=== PATIENT | female | born 2005 ===

== ENCOUNTER 2025-01-07 10:00 | Observation (INO) ==
--- NOTE | 2025-01-07 10:48 | ED Physician Documentation ---
PD HPI MHE Stated complaint Stated Complaint: TREMORS Chief complaint Chief Complaint: General Meds/Allgy Home Medications Ambulatory Orders Medication Instructions Recorded Confirmed meloxicam 7.5 mg tablet 7.5 mg PO BID PRN pain #14 tabs 12/28/24 prednisone 20 mg tablet See Rx Instructions .Route 12/28/24 .COMPLEX #19 tabs Allergies Allergies Allergy/AdvReac Type Severity Reaction Status Date / Time testosterone Allergy Mild Unknown Verified 01/07/25 10:21 PFSH Active Problems All Active Problems (Updated 12/28/24 @ 11:13 by Lorenzo Saldivar MD) Chronic pain (Acute) Social History Social History Relationship: Do you feel safe in your home environment?: Yes Suffered physical, verbal, emotional, or financial abuse?: No POLST Patient has POLST: No Results Vitals Vitals: Vital Signs - 24 hr 01/07/25 10:18 Temperature 36.6 C Temperature Source Temporal Artery Scan Pulse Rate 88 Respiratory Rate 18 Blood Pressure 126/82 O2 Saturation 97 O2 Source Room air Pain Intensity 7 Oxygen O2 Source Room air Discharge Plan Discharge Prescriptions: No Action prednisone 20 mg tablet See Rx Instructions .ROUTE .COMPLEX Qty: 19 0RF Rx Instructions: 3 tabs po daily x 3 days, then 2 tabs po daily x 3 days then 1 tab po daily x 4 days meloxicam 7.5 mg tablet 7.5 mg PO BID PRN (Reason: pain ) Qty: 14 0RF Print Language: Syriac Stand Alone Forms: PCP List
--- NOTE | 2025-01-07 11:23 | ED Physician Documentation ---
History of Present Illness Stated complaint Stated Complaint: TREMORS Chief complaint Chief Complaint: General Additonal information Additional information: 19-year-old female identifies as male with type I bipolar disorder presents emergency department for tremors and was told by her psychiatrist that she had toxic levels of lithium. Patient says that she has been taking lithium for a few months now her last blood draw was 0.5 yesterday her blood draw was at 3.1 and her psychiatrist told her to present to the nearest emergency department for further evaluation due to toxic levels of lithium. Patient has tremors throughout entire body and she also has been endorsing and some hallucinations, patient states that he keeps thinking he is hearing different phone calls and having conversations with different people that he did not actually have. Last lithium dose was yesterday morning Meds/Allgy Home Medications Ambulatory Orders Medication Instructions Recorded Confirmed meloxicam 7.5 mg tablet 7.5 mg PO BID PRN pain #14 tabs 12/28/24 prednisone 20 mg tablet See Rx Instructions .Route 12/28/24 .COMPLEX #19 tabs Allergies Allergies Allergy/AdvReac Type Severity Reaction Status Date / Time testosterone Allergy Mild Unknown Verified 01/07/25 10:21 REPLACED BY [facility] Active Problems All Active Problems (Updated 01/07/25 @ 18:11 by Marcelo Arango MD) Bipolar disorder (Acute) [place] toxicity (Acute) Chronic pain (Acute) Social History Social History Smoking Status: Unknown if ever smoked Relationship: Do you feel safe in your home environment?: Yes Suffered physical, verbal, emotional, or financial abuse?: No POLST Patient has POLST: No Exam Constitutional abnormal general appearance (disheveled), no apparent distress, average body habitus, limitations noted (behavioral limitations) and level of alertness abnormal (lethargic) HENMT normocephalic and head/scalp atraumatic Eyes PERRL and EOMs intact bilaterally Neck/C-Spine visual inspection normal Chest inspection of chest normal Respiratory breath sounds equal bilaterally, normal respiratory effort and clear to auscultation bilaterally Cardiovascular normal heart rate noted and regular rhythm noted Gastrointestinal abdomen normal to inspection Genitourinary no CVA tenderness Extremities normal to inspection and normal to palpation Neurology gutter installer II-XII intact, movement abnormality noted (generalized body tremors), speech abnormality noted (slowed speech) and GCS 15 Psychiatry mental status abnormal (lethargic), oriented x3, thought process abnormality noted (hallucinations), cooperative, affect abnormality noted (flat), psychomotor abnormality noted (slow) and memory normal Skin skin color normal Results Vitals Vitals: Vital Signs - 24 hr 01/07/25 10:18 01/07/25 10:21 01/07/25 12:20 Temperature 36.6 C Temperature Source Temporal Artery Scan Pulse Rate 88 92 Respiratory Rate 18 16 Blood Pressure 126/82 117/82 O2 Saturation 97 100 O2 Source Room air Room air Pain Intensity 7 7 7 01/07/25 14:00 01/07/25 16:00 Temperature Temperature Source Pulse Rate 98 96 Respiratory Rate 18 16 Blood Pressure 115/66 145/90 H O2 Saturation 100 99 O2 Source Room air Room air Pain Intensity 5 7 Oxygen O2 Source Room air EKG (time done) 1153: EKG releavant findings:: EKG personally interpreted by author of this note. Relevant findings are: Rate: Rate (enter#) (88) Rhythm: NSR [place]: Normal Intervals: Normal [place] Ischemia: Other (Nonspecific T wave abnormalities in the anterior leads) Computer interpretation: Agree with computer Labs Labs: Laboratory Tests 01/07/25 01/07/25 01/07/25 11:20 11:27 15:38 WBC 13.8 H RBC 4.88 Hgb 14.7 Hct 45.4 MCV 93.0 MCH 30.1 MCHC 32.4 RDW 13.6 Plt Count 332 MPV 9.4 Neut # (Auto) 11.0 H Lymph # (Auto) 1.6 [place] # (Auto) 0.7 Eos # (Auto) 0.5 Baso # (Auto) 0.1 Absolute Nucleated RBC 0.00 Nucleated RBC % 0.0 Sodium 137 Potassium 4.8 H Chloride 111 Carbon Dioxide 22 Anion Gap 4.0 L BUN 14 Creatinine 1.1 Estimated GFR (MDRD) 63 L Glucose 88 Calcium 10.3 Total Bilirubin 0.4 AST 23 ALT 40 Alkaline Phosphatase 73 Total Protein 6.8 Albumin 4.6 Globulin 2.2 Albumin/Globulin Ratio 2.1 Last Dose Date UNKNOWN UNKNOWN Last Dose Time UNKNOWN UNKNOWN Urine Opiates Screen NEGATIVE Ur Buprenorphine Scrn NEGATIVE Ur Oxycodone Screen NEGATIVE Urine Methadone Screen NEGATIVE Ur Barbiturates Screen NEGATIVE Ur Tricyclics Screen NEGATIVE Ur Phencyclidine Scrn NEGATIVE Ur Amphetamine Screen POSITIVE H U Methamphetamines Scrn NEGATIVE U Benzodiazepines Scrn NEGATIVE [place] 2.76 H* 2.24 H* Urine Cocaine Screen NEGATIVE U Cannabinoids Screen NEGATIVE Ur Drug Screen Comment CUTOFF CONC BELOW: PD Medical Decision Making ED course ED course: 19-year-old female with history of type I bipolar disorder takes lithium daily presents to emergency department for concerns of lithium toxicity. Patient said that her psychiatrist checked her level last night and it was 3.1 she has not taken any additional doses since finding out that her lithium level was elevated. She comes in quite tremulous she is able to describe the situation and is overall good historian of how much medication she takes but she does report that she is feeling confused with hallucinations. Labs are complete for further evaluation and she has got mild leukocytosis, 13.8 potassium slightly elevated at 4.8 and kidney function appears to be within normal limits. Urine drug screen is positive for amphetamines initial lithium level came back at 2.76 I spoke with [facility] poison control who recommended repeating a level 4 hours from initial draw it is trending down so it does appear to have peaked last night it is now 2.24. Given that patient still quite symptomatic [facility] poison control is recommending to continue to trend lithium levels every 6 hours until they are within therapeutic range which is 1.5 and below. She received 2 L of IV fluids here in the emergency department she is not going to require dialysis she is also received 2 mg p.o. Ativan to help with her tremors and anxiety that she is experiencing with this. I spoke with hospitalist who has graciously agreed to admit the patient for continued trending of lithium levels as well as ongoing IV fluid. Patient is agreeable to stay at this point in time. Discharge Plan Discharge Patient Disposition: 66 [facility] DC/Xfer Condition: Good Clinical Impression: [place] toxicity
[2025-01-07 11:39] LABS: BASOPHILS # (AUTO) 0.1 10^3/uL (0.0-0.1); BASOPHILS % (AUTO) 0.4 %; EOSINOPHILS # (AUTO) 0.5 10^3/uL (0.0-0.7); EOSINOPHILS % (AUTO) 3.4 %; HCT - HEMATOCRIT 45.4 % (37.0-47.0); HGB - HEMOGLOBIN 14.7 g/dL (12.0-16.0); LYMPHOCYTES # (AUTO) 1.6 10^3/uL (1.5-3.5); LYMPHOCYTES % (AUTO) 11.4 %; MEAN CORPUSCULAR HEMOGLOBIN 30.1 pg (27.0-31.0); MEAN CORPUSCULAR HGB CONC 32.4 g/dL (32.0-36.0); MEAN PLATELET VOLUME 9.4 fL (7.9-10.8); MONOCYTES # (AUTO) 0.7 10^3/uL (0.0-1.0); MONOCYTES % (AUTO) 4.7 %; NEUTROPHILS % (AUTO) 79.7 %; PLT - PLATELET COUNT 332 10^3/uL (130-450); RED BLOOD COUNT 4.88 10^6/uL (4.20-5.40); RED CELL DISTRIBUTION WIDTH 13.6 % (12.0-15.0); WHITE BLOOD COUNT 13.8 x10^3/uL (4.8-10.8)
[2025-01-07] MEDS: SODIUM CHLORIDE 0.9% 1,000 ML IV STA ×2 (11:47→13:06)
[2025-01-07 11:55] LABS: ALBUMIN 4.6 g/dL (3.2-5.5); ALBUMIN/GLOBULIN RATIO 2.1 (1.0-2.2); BILIRUBIN,TOTAL 0.4 mg/dL (0.2-1.0); CALCIUM 10.3 mg/dL (8.5-10.3); CREATININE 1.1 mg/dL (0.6-1.3); POTASSIUM 4.8 mmol/L (3.5-4.5); TOTAL PROTEIN 6.8 g/dL (6.4-8.9)
[2025-01-07 12:01] LABS: LITHIUM 2.76 mmol/L
[2025-01-07] MEDS: LORazepam 1 MG TABLET PO STA ×2 (12:13→18:33)
[2025-01-07 12:35] LABS: AMPHETAMINE SCREEN,URINE POSITIVE (NEGATIVE); BARBITURATE SCREEN,UR NEGATIVE (NEGATIVE); BENZODIAZEPINES SCREEN, URINE NEGATIVE (NEGATIVE); COCAINE SCREEN URINE NEGATIVE (NEGATIVE); METHADONE SCREEN, URINE NEGATIVE (NEGATIVE); METHAMPHETAMINES SCREEN, URINE NEGATIVE (NEGATIVE); OPIATE SCREEN, URINE NEGATIVE (NEGATIVE); OXYCODONE SCREEN, URINE NEGATIVE (NEGATIVE); THC CANNABINOID SCREEN, URINE NEGATIVE (NEGATIVE); TRICYCLIC ANTIDEPRESSANT,URINE NEGATIVE (NEGATIVE)
[2025-01-07 12:36] LABS: BUPRENORPHINE SCREEN, URINE NEGATIVE (NEGATIVE)
[2025-01-07] MEDS: ONDANSETRON ODT 4 MG TABLET TL STA (15:27)
[2025-01-07] MEDS: hydrOXYzine PAMOATE 25 MG CAPSULE PO STA (15:27)
[2025-01-07 17:29] LABS: LITHIUM 2.24 mmol/L
[2025-01-07] MEDS: LORazepam 2 MG/ML VIAL IVP STA (18:37)
--- NOTE | 2025-01-07 18:41 | HISTORY & PHYSICAL EXAMINATION ---
Chief Complaint Chief Complaint Chief Complaint: Shaking, tremors History of Present Illness Admitted From Admitted From:: Emergency department History Obtained From Records Reviewed: ED records History obtained from: Patient and Ana Miller NP, ED provider History of Present Illness HPI Comment/Other: Patient is a 19-year-old biological female who identifies as a male with a PMH Of bipolar 1 disorder, chronic pain, and reportedly a recent diagnosis of fibromyalgia, who is on prescription lithium and presents to the ED at the recommendation of her psychiatrist after her lithium level was checked and found to be elevated at 3.1.The patient states that she has been having tremors for the last 1 month. She states 2 months ago her psychiatrist increased her dose of lithium and she has been having generalized shaking for a month. She states prior to that she had never had anything like this happen before. She denies any other symptoms but she is experiencing a panic attack at the time of admission and obtaining more detailed history from the patient is difficult due to the patient's current mental status and severe anxiety. Here in the ED, patient was noted to be tremulous on arrival, but had normal vital signs, normal EKG, mildly elevated WBC at 13.8, normal creatinine, and elevated lithium at 2.76. Poison Control Center was contacted and recommendation was for admission with IV fluids and trending repeat lithium levels every 6 hours. This should continue until levels are below 1.5. Meds/Allgy Home Medications Ambulatory Orders Medication Instructions Recorded Confirmed meloxicam 7.5 mg tablet 7.5 mg PO BID PRN pain #14 tabs 12/28/24 prednisone 20 mg tablet See Rx Instructions .Route 12/28/24 .COMPLEX #19 tabs Allergies Allergies Allergy/AdvReac Type Severity Reaction Status Date / Time testosterone Allergy Mild Unknown Verified 01/07/25 10:21 [facility] Active Problems All Active Problems (Updated 01/07/25 @ 18:11 by Marcelo Arango MD) Bipolar disorder (Acute) [place] toxicity (Acute) Chronic pain (Acute) Social History Social History Relationship: Do you feel safe in your home environment?: Yes Suffered physical, verbal, emotional, or financial abuse?: No POLST Patient has POLST: No Review of Systems Status of ROS: unobtainable due to mental status Exam Constitutional normal general appearance and no apparent distress Eyes PERRL and EOMs intact bilaterally Respiratory breath sounds equal bilaterally, normal respiratory effort and clear to auscultation bilaterally Cardiovascular normal heart rate noted, regular rhythm noted and no murmur Gastrointestinal abdomen soft to palpation, nontender to palpation and nontender to percussion Neurology chemical process engineer II-XII intact, movement abnormality noted and GCS 15 Tremors generalized, all 4 extremities, trunk, neck Psychiatry psychomotor abnormality noted Anxious, Tearful Skin skin color normal Conclusion/Plan Problem List (1) [place] toxicity: Plan: * Patient with known history of bipolar disorder taking lithium now presenting with lithium toxicity * Ischemia level improved from 2.7-2.4 in the ED * As per poison control recommendations continue IV fluids and check lithium level every 6 hours until 1.5 or below * As needed Valium for muscle spasms and tremors (2) Bipolar disorder: Plan: * Pending medication reconciliation, resume home medications (3) Chronic pain: Plan: * As needed pain medications Qualifiers: Chronic pain type: chronic pain syndrome Qualified Code(s): G89.4 - Chronic pain syndrome Lab Results Lab results reviewed: Yes 01/07/25 11:27 01/07/25 11:27 Diagnostic Imaging Results Diagnostic Imaging Results: positive Final report reviewed EKG Results EKG Interpreted Independently: Yes EKG Comparison: No prior EKG
[2025-01-07] MEDS ORDERED: ZOLPIDEM 5 MG TABLET PO PRN (18:52)
[2025-01-07] MEDS ORDERED: ACETAMINOPHEN 325 MG TABLET PO PRN (18:52)
[2025-01-07] MEDS ORDERED: ONDANSETRON ODT 4 MG TABLET TL PRN (18:52)
[2025-01-07] MEDS ORDERED: SODIUM CHLORIDE FLUSH 0.9% 10 ML SYRINGE IVP PRN (18:52)
[2025-01-07] MEDS: oxyCODONE 5 MG TABLET PO PRN (21:12)
[2025-01-07] MEDS: SODIUM CHLORIDE 0.9% 1,000 ML IV SCH (21:12)
[2025-01-07] MEDS: diazePAM INJ 5 MG/ML SYRINGE IVP PRN (21:13)
[2025-01-07] MEDS: SODIUM CHLORIDE FLUSH 0.9% 10 ML SYRINGE IVP SCH (22:08)
[2025-01-07 22:56] LABS: LITHIUM 1.96 mmol/L
[2025-01-08] MEDS: oxyCODONE 5 MG TABLET PO PRN (02:49)
[2025-01-08 05:27] LABS: LITHIUM 1.62 mmol/L
[2025-01-08 07:40] VITALS: O2SAT 98
[2025-01-08] MEDS: ENOXAPARIN 40 MG/0.4 ML SYRINGE SUBQ SCH (08:26)
[2025-01-08 09:33] LABS: BASOPHILS # (AUTO) 0.1 10^3/uL (0.0-0.1); BASOPHILS % (AUTO) 0.5 %; EOSINOPHILS # (AUTO) 0.6 10^3/uL (0.0-0.7); EOSINOPHILS % (AUTO) 4.3 %; HCT - HEMATOCRIT 41.6 % (37.0-47.0); HGB - HEMOGLOBIN 13.5 g/dL (12.0-16.0); LYMPHOCYTES # (AUTO) 3.1 10^3/uL (1.5-3.5); LYMPHOCYTES % (AUTO) 24.3 %; MEAN CORPUSCULAR HEMOGLOBIN 30.6 pg (27.0-31.0); MEAN CORPUSCULAR HGB CONC 32.5 g/dL (32.0-36.0); MEAN CORPUSCULAR VOLUME 94.3 fL (81.0-99.0); MEAN PLATELET VOLUME 9.2 fL (7.9-10.8); MONOCYTES # (AUTO) 0.8 10^3/uL (0.0-1.0); MONOCYTES % (AUTO) 6.6 %; NEUTROPHILS # (AUTO) 8.2 10^3/uL (1.5-6.6); PLT - PLATELET COUNT 304 10^3/uL (130-450); RED BLOOD COUNT 4.41 10^6/uL (4.20-5.40); RED CELL DISTRIBUTION WIDTH 14.1 % (12.0-15.0); WHITE BLOOD COUNT 12.8 x10^3/uL (4.8-10.8)
[2025-01-08 09:47] LABS: CALCIUM 9.5 mg/dL (8.5-10.3); CREATININE 0.9 mg/dL (0.6-1.3); POTASSIUM 3.6 mmol/L (3.5-4.5)
[2025-01-08 10:21] LABS: LITHIUM 1.44 mmol/L
[2025-01-08 11:02] LABS: ACETAMINOPHEN 0.1 ug/mL
[2025-01-08 11:16] LABS: THYROID STIMULATING HORMONE 13.41 uIU/mL (0.34-5.60)
[2025-01-08 11:17] LABS: SALICYLATE < 1.5 mg/dL
[2025-01-08] MEDS: NICOTINE 7 MG PATCH TOP SCH (11:43)
--- NOTE | 2025-01-08 12:26 | Discharge Summary ---
Discharge Summary Admit Date: 01/07/25 Discharge Date: 01/08/25 Discharging Provider: Dr Marcelo Arango MD DIAGNOSES Admission Diagnoses: [place] toxicity Bipolar disorder Discharge Diagnoses with Status of Each Condition: [place] toxicityresolved Bipolar disorder HPI History of Present Illness: Patient is a 19-year-old biological female who identifies as a male with a PMH Of bipolar 1 disorder, chronic pain, and reportedly a recent diagnosis of fibromyalgia, who is on prescription lithium and presents to the ED at the recommendation of her psychiatrist after her lithium level was checked and found to be elevated at 3.1.The patient states that she has been having tremors for the last 1 month. She states 2 months ago her psychiatrist increased her dose of lithium and she has been having generalized shaking for a month. She states prior to that she had never had anything like this happen before. She denies any other symptoms but she is experiencing a panic attack at the time of admission and obtaining more detailed history from the patient is difficult due to the patient's current mental status and severe anxiety. Here in the ED, patient was noted to be tremulous on arrival, but had normal vital signs, normal EKG, mildly elevated WBC at 13.8, normal creatinine, and elevated lithium at 2.76. Poison Control Center was contacted and recommendation was for admission with IV fluids and trending repeat lithium levels every 6 hours. This should continue until levels are below 1.5 HOSPITAL COURSE Hospital Course: Patient was admitted overnight for management of the lithium toxicity with IV fluids. As recommended by poison control, a lithium level was checked every 6 hours until normal which was defined as below 1.5.At 9:27 AM her lithium level was found to be 1.44 and she was also doing much better symptomatically with respect to the tremors. At rest, the patient had no tremors, in particular prior to initiating the follow-up exam in the morning. When witnessed from outside the room the patient was found to be sitting upright in bed eating without any evidence of tremors although after several minutes of speaking with the patient she started to have some mild tremors but still not to the extent that she had yesterday. She was asked explicitly with regards to intention of self-harm and she denied this. She confirmed again that the lithium toxicity was a function of a gradual buildup of lithium from an increase in the dosage 2 months prior. She states her symptoms have been ongoing for about 1 month. She denied any intentional overdose or any other suicidal or self-harm ideations. At discharge will recommend not taking any lithium until she follows up with her psychiatrist. ALLERGIES Allergies Allergy/AdvReac Type Severity Reaction Status Date / Time testosterone Allergy Mild Unknown Verified 01/07/25 10:21 MEDICATIONS Ambulatory Orders Medication Instructions Recorded Confirmed meloxicam 7.5 mg tablet 7.5 mg PO BID PRN pain #14 tabs 12/28/24 aripiprazole 5 mg tablet mg 01/08/25 cyclobenzaprine 5 mg tablet mg 01/08/25 naproxen 500 mg tablet mg 01/08/25 ondansetron 4 mg disintegrating mg 01/08/25 tablet pregabalin 25 mg capsule mg 01/08/25 PHYSICAL EXAM AT DISCHARGE General Appearance: positive No acute distress and Alert Respiratory: positive No respiratory distress and Breath sounds nml; negative Wheezes Cardiovascular: positive Regular rate & rhythm, No murmur and No gallop Abdomen: positive Non-tender, No organomegaly, Nml bowel sounds and No distention Skin: positive Color nml Extremities: positive Nml appearance Neurologic/Psychiatric: positive Oriented x3, CN's nml (2-12), Motor nml and Other (Mild tremors) LABS 01/08/25 09:27 01/08/25 09:27 DIAGNOSTIC IMAGING Diagnostic Imaging Results: Final report reviewed TIME SPENT Time Spent in Discharge (Minutes): 36 Discharge Plan Discharge Patient Disposition: 01 Home, Self Care Condition: Good Medically Cleared Date:: 01/08/25 Prescriptions: Continued meloxicam 7.5 mg tablet 7.5 mg PO BID PRN (Reason: pain ) Qty: 14 0RF aripiprazole 5 mg tablet ondansetron 4 mg tablet,disintegrating naproxen 500 mg tablet cyclobenzaprine 5 mg tablet pregabalin 25 mg capsule Discontinued prednisone 20 mg tablet See Rx Instructions .ROUTE .COMPLEX Qty: 19 0RF Rx Instructions: 3 tabs po daily x 3 days, then 2 tabs po daily x 3 days then 1 tab po daily x 4 days lithium carbonate 300 mg tablet extended release PO lithium carbonate 300 mg tablet Diet: Regular Print Language: [place] Patient Instructions: [place] tablets or capsules Stand Alone Forms: PCP List
[2025-01-08 13:28] VITALS: BP 129/83; TEMP 98.2
== END 2025-01-08 13:45 | disposition home or self-care (01) ==
LOC: MS2 10:00 → ED 10:00 → MS2 18:50
PROVIDERS: ADMIT Family Medicine Sports Medicine; ATTEND Family Medicine Sports Medicine
DX: F41.9 Anxiety disorder, unspecified; M79.7 Fibromyalgia; Y92.009 Unspecified place in unspecified non-institutional (private) residence as the place of occurrence of the external cause; G89.4 Chronic pain syndrome; T43.595A Adverse effect of other antipsychotics and neuroleptics, initial encounter; F31.9 Bipolar disorder, unspecified; G25.1 Drug-induced tremor